=== PATIENT | female | born 1980 | race Caucasian/White ===

== ENCOUNTER → 2024-07-21 10:37 | Outpatient (REF) | payer OTHER, SELFPAY | LOC: RCS 10:37 | PROVIDERS: ATTENDING PHYSICIAN Physician Assistant; FAMILY PHYSICIAN Family Medicine | DX: R06.09 Other forms of dyspnea (principal) | CPT/HCPCS: 93017 ==

== ENCOUNTER → 2024-10-02 13:33 | Outpatient (REF) | payer OTHER, SELFPAY | LOC: HWWDC 13:33 | PROVIDERS: ATTENDING PHYSICIAN Physician Assistant | DX: Z12.31 Encounter for screening mammogram for malignant neoplasm of breast (principal) | CPT/HCPCS: 77063; 77067 ==

== ENCOUNTER → 2024-10-12 09:28 | Outpatient (REF) | payer OTHER, SELFPAY | LOC: WDC 09:28 | PROVIDERS: ATTENDING PHYSICIAN Physician Assistant | DX: R92.8 Other abnormal and inconclusive findings on diagnostic imaging of breast (principal) | CPT/HCPCS: 76642 ==